=== PATIENT | male | born 1935 | race Caucasian/White ===

== ENCOUNTER 2018-03-23 19:34 | Observation (INO) ==
--- NOTE | 2018-03-23 19:55 | ED ---
HPI General Chief Complaint: Arrhythmia / Palpitations Stated Complaint: NAUSEA/HEART PALP [id number] Time Seen by Provider: 03/23/18 19:45 Source: patient Mode of arrival: ambulatory Limitations: no limitations History of Present Illness HPI narrative: Primary CARE physician is Dr. Sonya Navarrete Patient stated approximately 30 minutes ago he started to have nausea , chest tightness along with palpitations, palpitations were best described as irregular and fast. Patient did not feel well so he decided to come to the emergency department for further evaluation. Patient denies any headache visual changes lateralizing weakness back pain abdominal pain vomiting or diarrhea....patient stated his gave him a baby aspirin but it didn't seem to help so he came. MD complaint: Reports palpitations and irregular heart beat Onset (ago): minute(s) (30) Duration: constant Context: Reports occurred during rest Associated symptoms: Reports nausea Related Data Home Medications Medication Instructions Recorded Confirmed albuterol sulfate [Ventolin HFA] 1 puff INHALATION Q4-6H PRN 03/23/18 03/23/18 escitalopram oxalate [Lexapro] 1 tab PO DAILY 03/23/18 03/23/18 fluticasone-salmeterol [Advair HFA] 2 puff INHALATION Q12H 03/23/18 03/23/18 Allergies Allergy/AdvReac Type Severity Reaction Status Date / Time amoxicillin Allergy Mild rash Verified 03/23/18 19:40 house dust Allergy Unknown Wheezing Verified 03/23/18 19:40 Review of Systems ROS: all other systems reviewed are negative PMFSH History History Provided By: Patient Medical History Medical History Family history of Alzheimer's disease (Acute) History of anxiety (Acute) History of depression (Acute) Surgical History Surgical History Hx of appendectomy (Acute) Hx of hernia repair (Acute) Hx of tonsillectomy (Acute) Social History Social History Substance History: No History of Abuse Smoking Status: Former smoker Tobacco Type: Cigarettes How Often Do You Have a Drink Containing Alcohol: 2 to 3 times a week Recent Travel in [facility] within the Last 8 Weeks: No Recent Out of Country Travel within the Last 8 Weeks: No Exam Narrative Exam Narrative: GENERAL: elderly male in no apparent distress. SKIN: Warm and dry. HEAD: Atraumatic. Normocephalic. EYES: Pupils equal and round. No scleral icterus. No injection or drainage. ENT: No nasal bleeding or discharge. Mucous membranes pink and moist. NECK: Trachea midline. No JVD. CARDIOVASCULAR: Normal rate but irregularly irregular rhythm. no rubs or gallops RESPIRATORY: No accessory muscle use. Clear to auscultation. Breath sounds equal bilaterally. GASTROINTESTINAL: Abdomen soft, non-tender, nondistended. No rebound or guarding MUSCULOSKELETAL: Extremities without clubbing, cyanosis, or edema. No obvious deformities. NEUROLOGICAL: Awake and alert. No obvious cranial nerve deficits. Motor grossly within normal limits. Five out of 5 muscle strength in the arms and legs. Normal speech. PSYCHIATRIC: Appropriate mood and affect; insight and judgment normal. Course Initial Documented Vital Signs Temperature 97.3 F L 03/23/18 19:40 Pulse Rate 102 H 03/23/18 19:40 Respiratory Rate 18 03/23/18 19:40 Blood Pressure 199/98 H 03/23/18 19:40 Pulse Oximetry 98 03/23/18 19:40 Last Documented Vital Signs Temperature 97.3 F L 03/23/18 19:40 Pulse Rate 62 03/23/18 20:33 Respiratory Rate 16 03/23/18 20:33 Blood Pressure 155/65 H 03/23/18 20:33 Pulse Oximetry 96 03/23/18 20:33 Medical Decision Making MDM Narrative Medical decision making narrative: No leukocytosis, no anemia, normal platelet count, no left shift Coagulation profile is within normal limits X are within normal limits. Normal kidney liver and pancreatic functions Normal TSH screen First set of cardiac enzymes negative Chest CT read by radiologist as negative for PE, noted incidental cholelithiasis Medical Screen Exam Complete: Yes Emergency Medical Condition: Yes Lab Data Result diagrams: 03/23/18 20:00 03/23/18 20:00 Lab Results 03/23/18 03/23/18 03/23/18 Range/Units 20:00 20:00 20:00 CBC w Diff Auto diff final WBC 10.7 (4.0-11.0) th/mm3 RBC 3.65 L (4.50-5.90) mil/mm3 Hgb 12.2 L (13.0-17.0) gm/dL Hct 35.4 L (39.0-51.0) % MCV 96.9 (80.0-100.0) fL MCH 33.4 (27.0-34.0) pg MCHC 34.4 (32.0-36.0) % RDW 12.1 (11.6-17.2) % Plt Count 213 (150-450) th/mm3 MPV 9.0 (7.0-11.0) fL Neut % (Auto) 64.4 (16.0-70.0) % Lymph % (Auto) 16.9 (9.0-44.0) % Burt % (Auto) 10.1 H (0.0-8.0) % Eos % (Auto) 6.5 H (0.0-4.0) % Baso % (Auto) 2.1 H (0.0-2.0) % Neut # (Auto) 6.9 (1.8-7.7) th/mm3 Lymph # (Auto) 1.8 (1.0-4.8) th/mm3 Burt # (Auto) 1.1 H (0.0-0.9) th/mm3 Eos # (Auto) 0.7 H (0.0-0.4) th/mm3 Baso # (Auto) 0.2 (0.0-0.2) th/mm3 WBC Differential . Differential Comment . PT 11.0 (9.8-11.6) sec INR 1.1 Ratio APTT 24.0 L (24.3-30.1) sec Sodium 138 (136-145) meq/L Potassium 3.8 (3.5-5.1) meq/L Chloride 103 (98-107) meq/L Carbon Dioxide 25.8 (21.0-32.0) meq/L Anion Gap 9 (5-15) meq/L BUN 20 H (7-18) mg/dL Creatinine 0.78 (0.60-1.30) mg/dL Estimated GFR Greater than 89 (>89) mL/min Random Glucose 137 H (74-106) mg/dL Calcium 8.8 (8.5-10.1) mg/dL Total Bilirubin 0.3 (0.2-1.0) mg/dL AST 24 (15-37) U/L ALT 19 (12-78) U/L Alkaline Phosphatase 84 (45-117) U/L Total Creatine Kinase 74 (39-308) U/L Troponin I Less than 0.02 L (0.02-0.05) ng/mL B-Natriuretic Peptide (0-100) pg/mL Total Protein 7.6 (6.4-8.2) g/dL Albumin 3.8 (3.4-5.0) g/dL Lipase 336 (73-393) U/L TSH 2.400 (0.358-3.740) uIU/mL 03/23/18 Range/Units 20:00 CBC w Diff WBC (4.0-11.0) th/mm3 RBC (4.50-5.90) mil/mm3 Hgb (13.0-17.0) gm/dL Hct (39.0-51.0) % MCV (80.0-100.0) fL MCH (27.0-34.0) pg MCHC (32.0-36.0) % RDW (11.6-17.2) % Plt Count (150-450) th/mm3 MPV (7.0-11.0) fL Neut % (Auto) (16.0-70.0) % Lymph % (Auto) (9.0-44.0) % Burt % (Auto) (0.0-8.0) % Eos % (Auto) (0.0-4.0) % Baso % (Auto) (0.0-2.0) % Neut # (Auto) (1.8-7.7) th/mm3 Lymph # (Auto) (1.0-4.8) th/mm3 Burt # (Auto) (0.0-0.9) th/mm3 Eos # (Auto) (0.0-0.4) th/mm3 Baso # (Auto) (0.0-0.2) th/mm3 WBC Differential Differential Comment PT (9.8-11.6) sec INR Ratio APTT (24.3-30.1) sec Sodium (136-145) meq/L Potassium (3.5-5.1) meq/L Chloride (98-107) meq/L Carbon Dioxide (21.0-32.0) meq/L Anion Gap (5-15) meq/L BUN (7-18) mg/dL Creatinine (0.60-1.30) mg/dL Estimated GFR (>89) mL/min Random Glucose (74-106) mg/dL Calcium (8.5-10.1) mg/dL Total Bilirubin (0.2-1.0) mg/dL AST (15-37) U/L ALT (12-78) U/L Alkaline Phosphatase (45-117) U/L Total Creatine Kinase (39-308) U/L Troponin I (0.02-0.05) ng/mL B-Natriuretic Peptide 40 (0-100) pg/mL Total Protein (6.4-8.2) g/dL Albumin (3.4-5.0) g/dL Lipase (73-393) U/L TSH (0.358-3.740) uIU/mL Imaging Data Radiologist's impression: Chest CTA 03/23/18 19:51 CONCLUSION: 1. No CT evidence for pulmonary artery embolism as questioned. 2. Senescent lung parenchymal changes with mild biapical scarring. 3. Cholelithiasis. Chest X-Ray 03/23/18 19:51 CONCLUSION: 1. No acute cardiopulmonary disease. ECG Data EKG Prior to Arrival: No Attestation: I personally reviewed and interpreted this ECG as follows: Prior ECG tracings: not available for review Interpretation: Normal sinus rhythm, PVC, biphasic P wave, normal intervals, no evidence of any ST elevation SD pattern. Discharge Plan Discharge Disposition Patient Disposition: 30 Still Patient Discharge Condition Condition: Fair Discharge Details Diagnosis: Palpitations, Chest pain, rule out acute myocardial infarction Physicians Team ED Provider: Chong Jose Primary Care Provider: Sonya Navarrete Rxs /Orders / Referrals /Forms Prescriptions: No Action albuterol sulfate [Ventolin HFA] 90 mcg/actuation Hfa Aerosol Inhaler 1 puff INHALATION Q4-6H PRN (Reason: Shortness Of Breath) RF: 0 escitalopram oxalate [Lexapro] 5 mg Tablet 1 tab PO DAILY RF: 0 fluticasone-salmeterol [Advair HFA] 45-21 mcg/actuation Hfa Aerosol Inhaler 2 puff INHALATION Q12H RF: 0 Discharge Interventions Interventions: Vital Signs Last Done: 03/23/18 20:33 Status ED Status: With Doctor
--- NOTE | 2018-03-23 20:05 | XR ---
EXAM DATE: 03/23/2018 8:02 PM EDT AGE/SEX: 83 years / Male INDICATIONS: Irregular heart rate, nausea starting today CLINICAL DATA: This is the patient's initial encounter. Patient reports that signs and symptoms have been present for 1 day and indicates a pain score of 0/10. MEDICAL/SURGICAL HISTORY: None. None. COMPARISON: No prior exams available for comparison. FINDINGS: Mild diffuse interstitial prominence. No significant focal pleural or parenchymal opacities. The card iomediastinal contours are unremarkable. Osseous structures are intact. CONCLUSION: 1. No acute cardiopulmonary disease. Electronically signed by: Frank Morrow MD 03/23/2018 8:04 PM EDT
[2018-03-23 20:24] LABS: Baso # (Auto) 0.2 th/mm3 (0.0-0.2); Baso % (Auto) 2.1 % (0.0-2.0); Eos # (Auto) 0.7 th/mm3 (0.0-0.4); Eos % (Auto) 6.5 % (0.0-4.0); Hematocrit 35.4 % (39.0-51.0); Hemoglobin 12.2 gm/dL (13.0-17.0); Lymph # (Auto) 1.8 th/mm3 (1.0-4.8); Lymph % (Auto) 16.9 % (9.0-44.0); Mean Corpuscular HGB Conc 34.4 % (32.0-36.0); Mean Corpuscular Hemoglobin 33.4 pg (27.0-34.0); Mean Corpuscular Volume 96.9 fL (80.0-100.0); Mono # (Auto) 1.1 th/mm3 (0.0-0.9); Mono % (Auto) 10.1 % (0.0-8.0); Neut # (Auto) 6.9 th/mm3 (1.8-7.7); Neut % (Auto) 64.4 % (16.0-70.0); Platelet Count 213 th/mm3 (150-450); Red Blood Count 3.65 mil/mm3 (4.50-5.90); Red Cell Distribution Width 12.1 % (11.6-17.2); White Blood Count 10.7 th/mm3 (4.0-11.0)
[2018-03-23 20:41] LABS: Chloride 103 meq/L (98-107); Potassium 3.8 meq/L (3.5-5.1); Sodium 138 meq/L (136-145)
[2018-03-23 20:44] LABS: Calcium 8.8 mg/dL (8.5-10.1)
[2018-03-23 20:45] LABS: Albumin 3.8 g/dL (3.4-5.0); Anion Gap 9 meq/L (5-15); Blood Urea Nitrogen 20 mg/dL (7-18); Carbon Dioxide 25.8 meq/L (21.0-32.0); Glucose,Random 137 mg/dL (74-106); Lipase 336 U/L (73-393)
[2018-03-23 20:47] LABS: Alanine Aminotransferase 19 U/L (12-78)
[2018-03-23 20:48] LABS: Aspartate Aminotransferase 24 U/L (15-37); Glomerular Filtration Rate Greater Than 89 mL/min (>89)
[2018-03-23 20:49] LABS: Total Protein 7.6 g/dL (6.4-8.2)
[2018-03-23 20:50] LABS: Alkaline Phosphatase 84 U/L (45-117)
[2018-03-23 21:03] LABS: Creatine Kinase 74 U/L (39-308); INR 1.1 Ratio
--- NOTE | 2018-03-23 21:35 | CT ---
EXAM DATE: 03/23/2018 9:25 PM EDT AGE/SEX: 83 years / Male INDICATIONS: Nausea. Heart palpitations. CLINICAL DATA: This is the patient's initial encounter. Patient reports that signs and symptoms have been present for 1 day and indicates a pain score of 5/10. MEDICAL/SURGICAL HISTORY: . Alzheimer's disease. Anxiety. Depression. . Appendectomy. Hernia repai r. Tonsillectomy. RADIATION DOSE: 7.05 CTDI (mGy) COMPARISON: No prior exams available for comparison. TECHNIQUE: Volumetric scanning was performed using a multi-row detector CT scanner during bolus infu rachel of 75 ml Omnipaque 350 (iohexol) nonionic water-soluble contrast as a single exam dose. The malathi a was post processed with a variety of visualization algorithms including full volume maximum intensi ty projection and sliding thin slab reformation. Using automated exposure control and adjustment of the mA and/or kV according to patient size, radiation dose was kept as low as reasonably achievable t o obtain optimal diagnostic quality images. DICOM format image data is available electronically for review and comparison. FINDINGS: Pulmonary Arteries: No filling defects are seen in the pulmonary arteries through the segmental vess els. The main pulmonary artery is normal in diameter. Lung: Senescent changes with minimal bronchiectasis in the lower lobes and near the apices. Minimal biapical scarring. No significant focal parenchymal abnormality. Pleura: No effusion, significant pleural thickening or pneumothorax. Mediastinum: Heart is unremarkable without pericardial effusion.No evidence of mediastinal or hilar adenopathy. Osseous Structures: No abnormal focal lytic or blastic bony lesions. Degenerative spondylosis of the thoracic spine. Other: Visualized upper abdomen demonstrates a small gallstones in the gallbladder. Stomach is moder ately distended. CONCLUSION: 1. No CT evidence for pulmonary artery embolism as questioned. 2. Senescent lung parenchymal changes with mild biapical scarring. 3. Cholelithiasis. Electronically signed by: Frank Morrow MD 03/23/2018 9:33 PM EDT
[2018-03-23] MEDS ORDERED: Bisacodyl 10 MG Supp RECTAL PRN (21:50)
[2018-03-24 07:29] LABS: Baso # (Auto) 0.1 th/mm3 (0.0-0.2); Baso % (Auto) 0.7 % (0.0-2.0); Eos # (Auto) 0.3 th/mm3 (0.0-0.4); Hematocrit 33.5 % (39.0-51.0); Hemoglobin 11.1 gm/dL (13.0-17.0); Lymph # (Auto) 1.2 th/mm3 (1.0-4.8); Lymph % (Auto) 16.2 % (9.0-44.0); Mean Corpuscular HGB Conc 33.2 % (32.0-36.0); Mean Corpuscular Hemoglobin 33.1 pg (27.0-34.0); Mean Corpuscular Volume 99.5 fL (80.0-100.0); Mono # (Auto) 0.8 th/mm3 (0.0-0.9); Mono % (Auto) 10.2 % (0.0-8.0); Neut % (Auto) 68.9 % (16.0-70.0); Platelet Count 194 th/mm3 (150-450); Red Blood Count 3.37 mil/mm3 (4.50-5.90); Red Cell Distribution Width 12.3 % (11.6-17.2); White Blood Count 7.4 th/mm3 (4.0-11.0)
[2018-03-24 07:43] LABS: Chloride 105 meq/L (98-107); Potassium 3.8 meq/L (3.5-5.1); Sodium 140 meq/L (136-145)
[2018-03-24 07:48] LABS: Calcium 8.4 mg/dL (8.5-10.1)
[2018-03-24 07:49] LABS: Albumin 3.3 g/dL (3.4-5.0); Anion Gap 7 meq/L (5-15); Blood Urea Nitrogen 17 mg/dL (7-18); Carbon Dioxide 28.5 meq/L (21.0-32.0); Glucose,Random 83 mg/dL (74-106)
[2018-03-24 07:52] LABS: Alanine Aminotransferase 16 U/L (12-78); Aspartate Aminotransferase 16 U/L (15-37); Glomerular Filtration Rate Greater Than 89 mL/min (>89)
[2018-03-24 07:53] LABS: Total Protein 6.6 g/dL (6.4-8.2)
[2018-03-24 07:55] LABS: Alkaline Phosphatase 71 U/L (45-117)
[2018-03-24] MEDS ORDERED: Escitalopram 10 MG Tablet PO SCH (09:00)
[2018-03-24 09:22] VITALS: RESP 20
--- NOTE | 2018-03-24 09:35 | P.HP ---
History of Present Illness Primary Care Physician: Sonya Navarrete MD Chief Complaint: irregular hr, nausea History of Present Illness: 83-year-old male with known history of Alzheimer's, leaky heart valve , COPD who presented to the hospital for evaluation of irregular heart rate, nausea. Patient states that he was in normal state of health until last night when he went to dinner with his . He was at the restaurant in drink some beer and then started developing some nausea and then started feeling his heart racing. He states that felt as if he had an irregular heartbeat and he could feel his heart beating in his chest. Because that reason he came to the hospital for evaluation. Patient denied any chest pain, shortness of breath, dyspnea, diaphoresis. The patient presented to the emergency department he did have elevated blood pressure 199/99. Patient has no documented history of hypertension. Since then the blood pressure has gradually decreased down to normal. Patient had workup done emergency department and was recommended by the ER physician that the patient be observed in the hospital to rule out coronary component of the patient's symptoms. Patient is followed by Dr. Dumont on a regular basis. Patient states that he saw her approximately 6 months ago. Last stress test was approximately 2 years ago. At time evaluating the patient he is denying any recurrent episodes of irregular heartbeat. He denies any active chest pain. - Diagnosis (1) Nausea (2) Palpitations Review of Systems All other systems reviewed negative except as stated in HPI Cardiovascular: Reports irregular heart rhythm Gastrointestinal: Reports nausea PMFSH - History History Provided By: Patient - Medical History Medical History: Medical History (Last Reviewed 03/24/18 @ 09:25 by FEDERICO Tom) Alzheimer disease Chronic obstructive pulmonary disease History of anxiety History of depression - Surgical History Surgical History: Surgical History (Last Reviewed 03/24/18 @ 09:25 by FEDERICO Tom) Hx of appendectomy Hx of hernia repair Hx of tonsillectomy - Family History Family History: Family History (Last Reviewed 03/24/18 @ 09:25 by FEDERICO Tom) Other Family history of Alzheimer's disease - Tobacco History Second Hand Smoke Exposure: No Tobacco Use In Past 30 Days: No Smoking Status: Never smoker Tobacco Type: Cigarettes - Alcohol History How Often Do You Have a Drink Containing Alcohol: Never - Substance Use History Substance History: No History of Abuse - Travel History Recent Travel in the [place] Within the Last 8 Weeks: No Recent Travel Out of the Country Within the Last 8 Weeks: No - Immunization History Tetanus Immunization: Unsure Medications and Allergies Active Medications: Active Medications Al Hydroxide/Mg Hydroxide (Milk Of Magnesia Liq) 30 ml PO Q12H PRN PRN Reason: Mild Constipation Aspirin (Aspirin Chew) 81 mg PO DAILY APOLLO Last Admin: 03/23/18 22:00 Dose: 81 mg Bisacodyl (Dulcolax Supp) 10 mg RECTAL DAILY PRN PRN Reason: SEVERE CONSITIPATION Lactulose (Lactulose Liq) 30 ml PO DAILY PRN PRN Reason: SEVERE CONSITIPATION Non-Formulary Medication (Escitalopram Oxalate [Lexapro]) 1 tab PO DAILY [facility] Non-Formulary Medication (Fluticasone-Salmeterol [Advair Hfa]) 2 puff INHALATION Q12H APOLLO Ondansetron HCl (Zofran Inj) 4 mg IV.PUSH Q6H PRN PRN Reason: NAUSEA OR VOMITING Sennosides (Senokot) 17.2 mg PO Q12H PRN PRN Reason: Moderate Constipation Sodium Chloride (Ns Flush) 2 ml IV.FLUSH UNSCH PRN PRN Reason: FLUSH AFTER USING IV ACCESS Allergies Allergy/AdvReac Type Severity Reaction Status Date / Time amoxicillin Allergy Mild rash Verified 03/23/18 19:40 house dust Allergy Unknown Wheezing Verified 03/23/18 19:40 Home Medications Medication Instructions Recorded Confirmed Type albuterol sulfate [Ventolin HFA] 1 puff INHALATION Q4-6H PRN 03/23/18 03/23/18 History escitalopram oxalate [Lexapro] 1 tab PO DAILY 03/23/18 03/23/18 History fluticasone-salmeterol [Advair HFA] 2 puff INHALATION Q12H 03/23/18 03/23/18 History Exam Vital signs: Vital Signs 03/23/18 19:40 03/23/18 20:16 03/23/18 20:33 Temperature 97.3 F L Pulse Rate 102 H 62 Respiratory Rate 18 16 Blood Pressure 199/98 H 155/65 H Pulse Oximetry 98 98 96 03/23/18 22:01 03/23/18 23:53 03/24/18 00:00 Temperature 95.5 F L Pulse Rate 64 67 54 L Respiratory Rate 16 18 Blood Pressure 177/67 H 167/74 H Pulse Oximetry 97 99 03/24/18 04:58 03/24/18 06:00 03/24/18 06:26 Temperature 96.2 F L Pulse Rate 54 L Respiratory Rate 18 18 18 Blood Pressure 121/59 L Pulse Oximetry 98 03/24/18 08:00 Temperature 96.9 F L Pulse Rate 62 Respiratory Rate 20 Blood Pressure 138/60 Pulse Oximetry 97 Intake & Output 03/23/18 03/24/18 03/24/18 18:59 06:59 18:59 Intake Total 0 / 0 Balance 0 / 0 Weight 56.6 kg Intake: Oral 0 / 0 Other: # Voids 2 Weight On Admission 56.4 kg Narrative: GENERAL: Well-developed, well-nourished, in no acute distress. alert and orientated HEENT: Head is normocephalic without any lesions or masses noted. Facial features are symmetric. Eyes: Pupils equal round reactive to light. Extraocular muscles are intact. Conjunctivae were clear. Oropharyngeal: Pharynx without any erythema edema. Tongue is midline without deviation. Buccal mucosa is moist without any masses or lesions NECK: Supple without any masses. Trachea midline no deviation. No JVD, no bruits are appreciated CARDIAC: Regular rhythm, regular rate. S1/S2 are heard. No murmurs gallops or rubs. LUNGS: Clear to auscultation bilaterally. No wheeze, rhonchi or rales. No use of accessory muscles on inspiration or expiration. ABDOMEN: Soft, nontender. Nondistended. Bowel sounds heard in all 4 quadrants. No organomegaly or masses. Negative rebound, negative guarding EXTREMITIES: No edema, pulses are equal bilaterally. No cyanosis or clubbing NEUROLOGY: Mood and affect appear appropriate. Cranial nerves II through XII grossly intact. Muscle strength 5/5 in upper and lower extremities bilaterally. Deep tendon reflexes are 2+ in upper and lower extremities bilaterally. Results - Labs CBC & Chem 7: 03/24/18 07:05 03/24/18 07:05 Labs: Laboratory Results - last 24 hr 03/23/18 03/23/18 03/23/18 20:00 20:00 20:00 CBC w Diff Auto diff final WBC 10.7 RBC 3.65 L Hgb 12.2 L Hct 35.4 L MCV 96.9 MCH 33.4 MCHC 34.4 RDW 12.1 Plt Count 213 MPV 9.0 Neut % (Auto) 64.4 Lymph % (Auto) 16.9 Hettinger % (Auto) 10.1 H Eos % (Auto) 6.5 H Baso % (Auto) 2.1 H Neut # (Auto) 6.9 Lymph # (Auto) 1.8 Hettinger # (Auto) 1.1 H Eos # (Auto) 0.7 H Baso # (Auto) 0.2 WBC Differential . Differential Comment . PT 11.0 INR 1.1 APTT 24.0 L Sodium 138 Potassium 3.8 Chloride 103 Carbon Dioxide 25.8 Anion Gap 9 BUN 20 H Creatinine 0.78 Estimated GFR Greater than 89 Random Glucose 137 H Calcium 8.8 Total Bilirubin 0.3 AST 24 ALT 19 Alkaline Phosphatase 84 Total Creatine Kinase 74 Troponin I Less than 0.02 L B-Natriuretic Peptide Total Protein 7.6 Albumin 3.8 Lipase 336 TSH 2.400 03/23/18 03/23/18 03/24/18 20:00 22:00 07:05 CBC w Diff WBC RBC Hgb Hct MCV MCH MCHC RDW Plt Count MPV Neut % (Auto) Lymph % (Auto) Hettinger % (Auto) Eos % (Auto) Baso % (Auto) Neut # (Auto) Lymph # (Auto) Hettinger # (Auto) Eos # (Auto) Baso # (Auto) WBC Differential Differential Comment PT INR APTT Sodium Potassium Chloride Carbon Dioxide Anion Gap BUN Creatinine Estimated GFR Random Glucose Calcium Total Bilirubin AST ALT Alkaline Phosphatase Total Creatine Kinase Troponin I 0.03 0.06 H B-Natriuretic Peptide 40 Total Protein Albumin Lipase TSH 03/24/18 03/24/18 07:05 07:05 CBC w Diff Auto diff final WBC 7.4 RBC 3.37 L Hgb 11.1 L Hct 33.5 L MCV 99.5 MCH 33.1 MCHC 33.2 RDW 12.3 Plt Count 194 MPV 9.0 Neut % (Auto) 68.9 Lymph % (Auto) 16.2 Hettinger % (Auto) 10.2 H Eos % (Auto) 4.0 Baso % (Auto) 0.7 Neut # (Auto) 5.0 Lymph # (Auto) 1.2 Hettinger # (Auto) 0.8 Eos # (Auto) 0.3 Baso # (Auto) 0.1 WBC Differential . Differential Comment . PT INR APTT Sodium 140 Potassium 3.8 Chloride 105 Carbon Dioxide 28.5 Anion Gap 7 BUN 17 Creatinine 0.67 Estimated GFR Greater than 89 Random Glucose 83 Calcium 8.4 L Total Bilirubin 0.5 AST 16 ALT 16 Alkaline Phosphatase 71 Total Creatine Kinase Troponin I B-Natriuretic Peptide Total Protein 6.6 D Albumin 3.3 L Lipase TSH - Imaging Impressions Chest CTA 03/23/18 19:51 CONCLUSION: 1. No CT evidence for pulmonary artery embolism as questioned. 2. Senescent lung parenchymal changes with mild biapical scarring. 3. Cholelithiasis. Chest X-Ray 03/23/18 19:51 CONCLUSION: 1. No acute cardiopulmonary disease. Caprini VTE Risk Assessment Caprini VTE Risk Assessment: Moderate/High Risk (score >= 2) Caprini Risk Assessment Model: Point Value = 1 Point Value = 2 Point Value = 3 Point Value = 5 Age 41-60 Minor surgery BMI > 25 kg/m2 Swollen legs Varicose veins or History of unexplained or recurrent spontaneous Oral contraceptives or hormone replacement Sepsis (< 1 month) Serious lung disease, including pneumonia (< 1 month) Abnormal pulmonary function Acute myocardial infarction Congestive heart failure (< 1 month) History of inflammatory bowel disease Medical patient at bed rest Age 61-74 Arthroscopic surgery Major open surgery (> 45 min) Laparoscopic surgery (> 45 min) Malignancy Confined to bed (> 72 hours) Immobilizing plaster cast Central venous access Age >= 75 History of VTE Family history of VTE Factor V Leiden Prothrombin [id number] Lupus anticoagulant Anticardiolipin antibodies Elevated serum homocysteine Heparin-induced thrombocytopenia Other congenital or acquired thrombophilia Stroke (< 1 month) Elective arthroplasty Hip, pelvis, or leg fracture Acute spinal cord injury (< 1 month) Prophylaxis Regimen: Total Risk Factor Score Risk Level Prophylaxis Regimen 0-1 Low Early ambulation 2 Moderate Order ONE of the following: *Sequential Compression Device (SCD) *Heparin 5000 units SQ BID 3-4 Higher Order ONE of the following medications: *Heparin 5000 units SQ TID *Enoxaparin/Lovenox 40 mg SQ daily (WT < 150 kg, CrCl > 30 mL/min) *Enoxaparin/Lovenox 30 mg SQ daily (WT < 150 kg, CrCl > 10-29 mL/min) *Enoxaparin/Lovenox 30 mg SQ BID (WT < 150 kg, CrCl > 30 mL/min) AND/OR *Sequential Compression Device (SCD) 5 or more Highest Order ONE of the following medications: *Heparin 5000 units SQ TID (Preferred with Epidurals) *Enoxaparin/Lovenox 40 mg SQ daily (WT < 150 kg, CrCl > 30 mL/min) *Enoxaparin/Lovenox 30 mg SQ daily (WT < 150 kg, CrCl > 10-29 mL/min) *Enoxaparin/Lovenox 30 mg SQ BID (WT < 150 kg, CrCl > 30 mL/min) AND *Sequential Compression Device (SCD) Assessment and Plan - Assessment (1) Nausea Code(s): R11.0 - Nausea Status: Acute (2) Palpitations Code(s): R00.2 - Palpitations Status: Acute - Plan Irregular heart rate, palpitations with nausea -Possible symptoms of coronary artery disease -Serial cardiac enzymes were performed with the last set having very equivocal troponin elevation at 0.06, will repeat another set of enzymes in 6 hours. Equivocal troponin elevation could be secondary to arrhythmia and/or significantly elevated blood pressure. -Serial EKG shows shows sinus rhythm first-degree AV block with premature supraventricular premature complexes -Discussed with Dr. Dumont, who is patient's director of academic. Reviewed results, EKGs with her. She indicates that need to repeat cardiac enzymes. If it improved then will may only require a stress test. If troponins continue to increase. Then patient will require cardiac consultation and further evaluation and management. Recommending starting patient on Coreg 3.125 mg twice daily for blood pressure management -We will continue aspirin leg -Myocardial perfusion study was performed which was unremarkable for any ischemia, low risk Elevated blood pressure -There is no documented history of patient having treated hypertension -Continue monitor blood pressure at medication as needed -Improved with the Chronic obstructive pulmonary disease -Continue O2 sat mentation maintain O2 sat greater than 92% -Continue home medications -Duo nebs as needed DVT prevention -Sequential compression devices Discharge Planning: Discharge home in stable condition Activity: Ad roma. Diet: Healthy heart diet Medication per medication reconciliation Follow-up with primary medical doctor in 1 week
[2018-03-24] MEDS ORDERED: Budesonide-Formoterol 80/4.5 MCG 6.9 GM Inhaler INH SCH (12:00)
[2018-03-24] MEDS ORDERED: Potassium Chloride Inj 10 MEQ in Sod Chloride 0.9% Inj 1,000 ML IV.CONT SCH (12:00)
[2018-03-24 13:21] LABS: Troponin I 0.05 ng/mL (0.02-0.05)
[2018-03-24 16:19] VITALS: BP 165/74; PULSE 55; TEMP 96.9; O2SAT 97
[2018-03-24] MEDS ORDERED: Regadenoson Inj 0.4 MG/5 ML Syringe IV.PUSH ONE (17:04)
--- NOTE | 2018-03-24 18:18 | NM ---
EXAM DATE: 03/24/2018 6:05 PM EDT AGE/SEX: 83 years / Male INDICATIONS:Angina. . Chest pain. CLINICAL DATA: This is the patient's initial encounter. Patient reports that signs and symptoms have been present for 1 day and indicates a pain score of 1/10. MEDICAL/SURGICAL HISTORY: Chronic obstructive pulmonary disease. Inguinal hernia repair. COMPARISON: No prior exams available for comparison. DOSE: 8.1 mCi Tc 99m Myoview at rest 26.2 mCi [id number] at stress 0.4 mg Lexiscan STRESS SYMPTOMS: Nausea. EJECTION FRACTION: 55 % TECHNIQUE: The patient underwent pharmacologic stress with infusion of prescribed dose. Continuous ECG tracing was monitored during stress. Gated SPECT imaging was performed after stress and conventi onal SPECT imaging was performed at rest. The examination was performed on a SPECT/CT scanner, both attenuation and non-corrected datasets were reviewed. FINDINGS: Distribution: The maximum perfused segment at stress is in the lateral wall. Perfusion Study: The pattern of perfusion at stress is within normal limits. Gated Study: There are intact wall motion and wall thickening without hypokinetic or dyskinetic segm ents. The ejection fraction is calculated at 55%. RISK CATEGORY: Low (<1% Annual Motality Rate) CONCLUSION: 1. No infarct, ischemia or focal wall motion abnormality. Electronically signed by: Tito Estevez MD 03/24/2018 6:17 PM EDT
--- NOTE | 2018-03-24 23:45 | ECG ---
Date Performed: 03/24/2018 Time Performed: 12:47:52 PTAGE: 83 years EKG: SINUS BRADYCARDIA WITH FIRST DEGREE AV BLOCK WITH OCCASIONAL SUPRAVENTRICULAR PREMATURE COM PLEXES ABNORMAL ECG PREVIOUS TRACING : 03/24/2018 04.09 Since the previous tracing, no significant change noted DOCTOR: Brendan Castellanos Interpretating Date/Time 03/24/2018 23:44:03
--- NOTE | 2018-03-25 00:06 | ECG ---
Date Performed: 03/24/2018 Time Performed: 04:09:46 PTAGE: 83 years EKG: Sinus rhythm WITH FIRST DEGREE AV BLOCK WITH FREQUENT SUPRAVENTRICULAR PREMATURE COMPLEXES ABNORMAL ECG PREVIOUS TRACING : 03/23/2018 19.54 Since the previous tracing, no significant change noted DOCTOR: Brendan Castellanos Interpretating Date/Time 03/25/2018 00:05:25
--- NOTE | 2018-03-25 00:26 | ECG ---
Date Performed: 03/23/2018 Time Performed: 19:54:13 PTAGE: 83 years EKG: Sinus rhythm WITH OCCASIONAL VENTRICULAR PREMATURE COMPLEXES WITH OCCASIONAL SUPRAVENTRICULAR PREMATURE COMPLEXES BORDERLINE ECG PREVIOUS TRACING : 10/10/2015 09.26 Since the previous tracing, no significant change noted DOCTOR: Brendan Castellanos Interpretating Date/Time 03/25/2018 00:25:41
--- NOTE | 2018-03-25 11:58 | TR ---
Date Performed: 03/24/2018 Time Performed: 17:19:35 DOCTOR: Nima Peters DRUG LIST: CLINICAL HISTORY: REASON FOR TEST: REASON FOR ENDING: OBSERVATION: CONCLUSION: COMMENTS: Lexiscan stress test was performed under standard four minute protocol. Radionuclide was injected one minute prior to ending the test. No electrocardiographic abormalities were present t o suggest ischemia. Nuclear imaging and interpretation are pending.
== END 2018-03-24 19:04 | disposition home or self-care (01) ==
LOC: PHEDA 19:34 → PHED 19:34 → PH3 21:05
PROVIDERS: ADMIT Internal Medicine; ATTEND Internal Medicine